=== PATIENT | male | born 1995 | race Caucasian/White ===

== ENCOUNTER → 2020-07-13 | Outpatient (CLI) | payer OTHER ==
--- NOTE | 2020-07-13 09:16 | CARD ---
MR#: [id number] Date of Study: 07/13/2020 Ordering Physician: EBER KING, Referring Physician: EBER KING, Tech: Jannie Moffett APPROVED REPORT EXAM: Two-dimensional and M-mode echocardiogram with Doppler and color Doppler. Other Information Quality : Average INDICATION Supraventricular Tachycardia 2D DIMENSIONS RVDd2.7 (2.9-3.5cm)Left Atrium(2D)3.1 (1.6-4.0cm) IVSd0.9 (0.7-1.1cm)Aortic Root(2D)3.1 (2.0-3.7cm) LVDd5.4 (3.9-5.9cm)LVOT Diameter2.1 (1.8-2.4cm) PWd1.0 (0.7-1.1cm)LVDs4.1 (2.5-4.0cm) FS (%) 23.8 %SV66.0 ml LVEF(%)47.1 (>50%) Aortic Valve AoV Peak Octaviano.92.9cm/sAoV VTI19.3cm AO Peak GR.3.5mmHgLVOT Peak Octaviano.92.2cm/s LVOT VTI 20.18cmAO Mean GR.2mmHg BENOIT (VMAX)2.06uy3TIN (VTI)3.70cm2 Mitral Valve MV E Kjlhwcjg40.9cm/sMV DECEL [id number] MV A Gcnhfend84.1cm/sMV E Mean Gr.1mmHg MV JID79jnC/A Ratio2.1 MVA (PHT)3.77cm2 TDI E/Lateral E'3.7E/Medial E'6.0 Pulmonary Valve PV Peak Pdvmtwna82.3cm/sPV Peak Grad.4mmHg Tricuspid Valve TR P. Oojveimw472sg/sRAP YUWRRSYH3fdNa TR Peak Gr.35jbJbMQRY16jsXg Pulmonary Vein S1 Isfcwrnw46.2cm/sD2 Atolxuzf37.6cm/s PVa [id number] LEFT VENTRICLE The left ventricle is normal size. There is normal left ventricular wall thickness. The left ventricu lar systolic function is normal and the ejection fraction is within normal range. The Ejection Fracti on is 50-55%. There is normal LV segmental wall motion. The left ventricular diastolic function and f illing is normal for age. RIGHT VENTRICLE The right ventricle is normal size. There is normal right ventricular wall thickness. The right ventr icular systolic function is normal. ATRIA The left atrium size is normal. The right atrium size is normal. The interatrial septum is intact wit h no evidence for an atrial septal defect or patent foramen ovale as noted on 2-D or Doppler imaging. AORTIC VALVE The aortic valve is normal in structure and function. Doppler and Color Flow revealed no significant aortic regurgitation. There is no significant aortic valvular stenosis. MITRAL VALVE The mitral valve is normal in structure and function. There is no evidence of mitral valve prolapse. There is no mitral valve stenosis. Doppler and Color-flow revealed trace mitral regurgitation. TRICUSPID VALVE The tricuspid valve is normal in structure and function. Doppler and Color Flow revealed trace tricus pid regurgitation with an estimated PAP of 20 mmHg. There is no tricuspid valve stenosis. PULMONIC VALVE The pulmonary valve is normal in structure and function. Doppler and Color Flow revealed trace pulmon ic valvular regurgitation. There is no pulmonic valvular stenosis. GREAT VESSELS The aortic root is normal in size. The ascending aorta is normal in size. The IVC is normal in size a nd collapses >50% with inspiration. PERICARDIAL EFFUSION There is no evidence of significant pericardial effusion. Critical Notification Critical Value: No <Conclusion> The left ventricular systolic function is normal and the ejection fraction is within normal range. Th e Ejection Fraction is 50-55%. There is normal LV segmental wall motion. Signed by : Eber King, Electronically Approved : 07/13/2020 09:16:06
== END | disposition home or self-care (01) ==
LOC: ECHO 07:51
PROVIDERS: ATTEND Internal Medicine Cardiovascular Disease
DX: I47.1 Supraventricular tachycardia (principal)
CPT/HCPCS: 93306

== ENCOUNTER → 2022-02-12 | Outpatient (CLI) | payer OTHER ==
[~2022-02-12] MED LIST: IOHEXOL 350 MG/ML 100 ML VIAL. IV ONE
[2022-02-12] MEDS: CONTRAST GIVEN. MC PRN (08:47)
--- NOTE | 2022-02-12 10:57 | RAD ---
Study: CT ANGIOGRAM CHEST WITH AND WITHOUT CONTRAST History: Chest pain Comparison: None Technique: Helical CT of the chest performed both prior to and after the administration of 100 mL Om nipaque 350 intravenous contrast and timed for angiographic evaluation of the aorta per dissection pr otocol. Coronal and sagittal reformats and 3-D MIP reconstruction was obtained. One or more of the following individualized dose reduction techniques were utilized for this examinat ion: 1. Automated exposure control 2. Adjustment of the mA and/or kV according to patient size 3. Use of iterative reconstruction technique. Findings: Unable to evaluate pulmonary arteries due to phase of contrast. Aorta: The thoracic aorta is normal in caliber measuring up to 2.8 cm in the ascending portion. There is no aortic dissection or intramural hematoma. No calcified atherosclerosis. Great vessel origins a re widely patent. There is a direct origin of left vertebral artery from the aortic arch. Heart: The heart is normal in size. No pericardial effusion. No coronary artery calcifications. Mediastinum: No mediastinal or hilar lymphadenopathy. Lungs: The lungs are clear. There is no pleural effusion or pneumothorax. Neck/Axilla/Body Wall: No axillary lymphadenopathy. Upper Abdomen: Unremarkable. Bones: Normal. Miscellaneous: None. IMPRESSION: Normal CTA of the chest. No aortic dissection or aortic aneurysm. Electronically signed by: Traci John MD (02/12/2022 10:54 AM) [id number]
== END ==
LOC: CT 07:46
PROVIDERS: ATTEND Internal Medicine Cardiovascular Disease
DX: R07.9 Chest pain, unspecified (principal)
CPT/HCPCS: 71275; Q9967